=== PATIENT | male | born 1970 | race Caucasian/White ===

== ENCOUNTER 2021-08-18 13:01 | Inpatient (IN) ==
[2021-08-18 14:31] LABS: Hematocrit 38.3 % (37.5-50.1); Mean Corpuscular HGB Conc 33.9 g/dL (31.6-35.5); Mean Corpuscular Hemoglobin 27.3 pg (28.0-33.3); Mean Corpuscular Volume 80.5 fL (83.0-100.0); Mean Platelet Volume 9.1 fL (9.4-12.4); Platelet Count 247 K/mcL (140-400); Red Blood Count 4.76 M/mcL (4.19-5.50); Red Cell Distribution Width 13.2 % (11.5-14.5); White Blood Count 8.2 K/mcL (4.3-11.1)
[2021-08-18 14:59] LABS: BUN/Creatinine Ratio 17 (6-26); Blood Urea Nitrogen 53 mg/dL (6-20); Carbon Dioxide 26 mEq/L (23-29); Chloride 97 mEq/L (98-107); Glucose 118 mg/dL (70-105); Osmolality,Calculated 293 (280-300); Sodium 134 mEq/L (136-145); Troponin I < 0.03 ng/mL (< 0.04); eGFR For African Americans 25 (> 60); eGFR For Non-African Americans 21 (> 60)
[2021-08-18 15:17] LABS: Monocytes # 0.5 K/mcL (0.0-1.3); Neutrophils # 4.8 K/mcL (1.6-8.9); Platelet Clumps Few (Not Present); Platelet Estimate Normal (Normal); Reactive Lymphocytes Present (Not Present); Toxic Granulation Present (Not Present)
[2021-08-18] MEDS ORDERED: 0.9 % Sodium Chloride 1,000 ML IV ONE (16:24)
[2021-08-18 17:30] LABS: Amorphous Sediment,Urine Few per hpf (None-Few); Bacteria,Urine Few per hpf (None-Few); Bilirubin,Urine Negative (Negative); Blood,Urine Negative (Negative); Clarity,Urine Turbid (Clear); Color,Urine Yellow (Yellow); Glucose,Urine (UA) Normal (Normal); Ketones,Urine Negative (Negative); Leukocyte Esterase,Urine Negative (Negative); Nitrite,Urine Negative (Negative); PH,Urine 5.5 pH Units (5.0-8.0); Protein,Urine 30 mg/dL (Neg-Trace); RBC,Urine 0-3 per hpf (0-3); Specific Gravity,Urine 1.016 (1.010-1.025); Squamous Epithelial Cell,Urine Few per hpf (None-Few); Urobilinogen,Urine Normal (Normal)
[2021-08-18 17:35] LABS: Amphetamine Screen,Urine Negative ng/mL (Cutoff=1000); Barbiturate Screen,Urine Negative ng/mL (Cutoff=200); Benzodiazepines Screen,Urine Negative ng/mL (Cutoff=200); Cannabinoid Screen,Urine Negative ng/mL (Cutoff = 50); Cocaine Screen,Urine Negative ng/mL (Cutoff= 300); Opiate Screen,Urine Negative ng/mL (Cutoff=300); Phencyclidine Screen,Urine Negative ng/mL (Cutoff=25)
[2021-08-18] MEDS ORDERED: Naloxone 0.4 MG/ML INJ IVP PRN ×3 (17:58→18:19)
[2021-08-18] MEDS ORDERED: Ondansetron ODT 4 MG TAB.RAPDIS SL PRN (18:11)
[2021-08-18] MEDS ORDERED: Perflutren Lipid Microsphere 1.3 ML in 0.9 % Sodium Chloride 8.7 ML IVP PRN (18:26)
[2021-08-18 19:20] LABS: Influenza A PCR Negative (Negative); Influenza B PCR Negative (Negative); Resp. Syncytial Virus PCR Negative (Negative)
[2021-08-18 19:22] LABS: SARS-CoV-2 by PCR (In House) Negative (Negative)
[2021-08-18 19:51] LABS: Creatine Kinase 34 Units/L (30-223)
[2021-08-19 05:59] LABS: Mean Corpuscular HGB Conc 32.6 g/dL (31.6-35.5); Mean Corpuscular Hemoglobin 26.3 pg (28.0-33.3); Mean Corpuscular Volume 80.8 fL (83.0-100.0); Mean Platelet Volume 9.2 fL (9.4-12.4); Platelet Count 190 K/mcL (140-400); Red Blood Count 4.33 M/mcL (4.19-5.50); Red Cell Distribution Width 13.5 % (11.5-14.5); White Blood Count 7.5 K/mcL (4.3-11.1)
[2021-08-19 06:07] LABS: Hemoglobin 11.4 g/dL (12.9-16.9)
[2021-08-19 06:31] LABS: Albumin/Globulin Ratio 1.1 (1.1-2.2); Bilirubin,Total 0.6 mg/dL (0.3-1.0); Calcium 7.9 mg/dL (8.6-10.3); Globulin 2.8 g/dL (2.4-3.5); Potassium 4.2 mEq/L (3.5-5.1); Total Protein 5.8 g/dL (6.4-8.9)
[2021-08-19] MEDS: 0.9 % Sodium Chloride 1,000 ML IV SCH ×2 (09:32→22:19)
[2021-08-19] MEDS: *HR* Heparin 5,000 UNIT/ML VIAL SQ SCH (17:20)
[2021-08-19 20:03] LABS: Complement C3 126 mg/dL (87-200)
[2021-08-19 20:23] LABS: Hepatitis B Surface Antigen Nonreactive (Nonreactive)
[2021-08-19 20:51] LABS: Hepatitis C Virus Antibody Nonreactive (Nonreactive)
[2021-08-19 20:52] LABS: Hepatitis B Core IgM Nonreactive (Nonreactive)
[2021-08-19 20:54] LABS: Hepatitis A Antibody IgM Nonreactive (Nonreactive)
[2021-08-20] MEDS: 0.9 % Sodium Chloride 1,000 ML IV SCH (06:31)
[2021-08-20] MEDS: *HR* Heparin 5,000 UNIT/ML VIAL SQ SCH ×2 (06:32→17:56)
[2021-08-20 08:27] LABS: Calcium 7.9 mg/dL (8.6-10.3); Potassium 3.8 mEq/L (3.5-5.1)
[2021-08-20] MEDS ORDERED: Acetaminophen 325 MG TABLET PO PRN (11:23)
[2021-08-20] MEDS ORDERED: 0.9 % Sodium Chloride 1,000 ML IV SCH (13:41)
[2021-08-20 15:06] LABS: Sodium, Urine 35.9 mEq/L
[2021-08-21] MEDS: *HR* Heparin 5,000 UNIT/ML VIAL SQ SCH (05:04)
[2021-08-21 08:43] LABS: Calcium 7.7 mg/dL (8.6-10.3); Magnesium 1.3 mg/dL (1.6-2.6); Phosphorous 4.4 mg/dL (2.7-4.5); Potassium 3.5 mEq/L (3.5-5.1)
[2021-08-21] MEDS ORDERED: Calcium Gluconate 1gm/50mL 1 GM/50 ML BAG IVPB ONE (08:56)
[2021-08-21 12:05] VITALS: PULSE 93; O2SAT 96
[2021-08-21 15:09] LABS: Calcium 8.1 mg/dL (8.6-10.3); Magnesium 1.7 mg/dL (1.6-2.6); Potassium 3.6 mEq/L (3.5-5.1)
[2021-08-21 15:12] VITALS: BP 113/71; TEMP 98.3
[2021-08-25 08:47] LABS: ANCA IFA Titer <1:20 (<1:20); Alpha 2 Globulin (PEP) 0.49 g/dL (0.48-1.05); Beta Globulin (PEP) 0.64 g/dL (0.48-1.10)
[2021-08-25 10:06] LABS: IFE Reflexed NOT DONE
[2021-08-25 10:07] LABS: ANCA IFA Pattern NONE DETECTED (None Detected); Serine Protease-3 Antibody 28 AU/mL (0-19)
== END 2021-08-21 16:10 | disposition home or self-care (01) | DRG 683 ==
LOC: EMEROOARM 13:01 → 3ANU 13:01 → SUATTDRO 19:34 → 3ANU 20:56 → SUATTDRO 08-19 13:36
PROVIDERS: ADMIT Family Medicine; ATTEND Internal Medicine